=== PATIENT | female | born 1980 | race African-American/Black ===

== ENCOUNTER 2016-09-08 13:19 | Emergency (ER) | payer OTHER ==
[~2016-09-08] VITALS: Ht 162.6 cm; Wt 132.0 kg
[2016-09-08 13:20] VITALS: BP 129/83
== END 2016-09-08 15:03 | disposition home or self-care (01) ==
LOC: EDBD 13:19 → ER 13:19
DX: S16.1XXA Strain of muscle, fascia and tendon at neck level, initial encounter (principal); V49.9XXA Car occupant (driver) (passenger) injured in unspecified traffic accident, initial encounter; Y93.89 Activity, other specified; Y99.8 Other external cause status; Y92.89 Other specified places as the place of occurrence of the external cause